=== PATIENT | female | born 1990 | race Caucasian/White ===

== ENCOUNTER 2019-06-22 18:06 | Emergency (ER) | payer OTHER ==
--- NOTE | 2019-06-22 18:36 | ER Document Report ---
ED Medical Screen (RME) - General Chief Complaint: Arrhythmia Stated Complaint: ABDOMINAL PAIN Time Seen by Provider: 06/22/19 18:29 Mode of Arrival: Ambulatory Information source: Patient Notes: 29-year-old female presented to ED for complaint of irregular heartbeat severe right-sided pelvic cramping and she is 7 weeks . She has had a confirmation UA. She is 2 para 1. Last menstrual period was May 02. She is very short of breath. She states the pain is so bad it woke her up from her sleep on her right pelvic area. She is a negative blood type. He has had a irregular heartbeat her whole life but it is much worse for the last couple days. She states the cramping is been bad for about 2 weeks. I have greeted and performed a rapid initial assessment of this patient. A comprehensive ED assessment and evaluation of the patient, analysis of test results and completion of medical decision making process will be conducted by an additional ED providers. Physical Exam - Vital signs Vitals: Temp Pulse Resp BP Pulse Ox 98.4 F 99 16 137/84 H 100 06/22/19 18:11 06/22/19 18:11 06/22/19 18:11 06/22/19 18:11 06/22/19 18:11 Course - Vital Signs Vital signs: Temp Pulse Resp BP Pulse Ox 98.4 F 99 16 137/84 H 100 06/22/19 18:11 06/22/19 18:11 06/22/19 18:11 06/22/19 18:11 06/22/19 18:11
--- NOTE | 2019-06-22 19:01 | RADIOLOGY REPORT (SQ) ---
EXAM DESCRIPTION: CHEST 2 VIEWS COMPLETED DATE/TIME: 06/22/2019 6:49 pm REASON FOR STUDY: heart arrythmia COMPARISON: None. EXAM PARAMETERS: NUMBER OF VIEWS: two views TECHNIQUE: Digital Frontal and Lateral radiographic views of the chest acquired. RADIATION DOSE: NA LIMITATIONS: none FINDINGS: LUNGS AND PLEURA: No opacities, masses or pneumothorax. No pleural effusion. MEDIASTINUM AND HILAR STRUCTURES: No masses or contour abnormalities. HEART AND VASCULAR STRUCTURES: Heart normal size. No evidence for failure. BONES: No acute findings. HARDWARE: None in the chest. OTHER: No other significant finding. IMPRESSION: NO ACUTE RADIOGRAPHIC FINDING IN THE CHEST. TECHNICAL DOCUMENTATION: JOB ID: [id number]- All Rights Reserved Reading location - IP/workstation name: [email or web address]
[2019-06-22 19:10] LABS: ABSOLUTE BASOPHILS # (AUTO) 0.1 10^3/uL (0.0-0.2); ABSOLUTE EOSINOPHILS # (AUTO) 0.1 10^3/uL (0.0-0.6); ABSOLUTE MONOCYTES (AUTO) 0.7 10^3/uL (0.1-1.4); BASOPHILS % (AUTO) 0.6 % (0-2); EOSINOPHILS % (AUTO) 1.4 % (0-6); HEMATOCRIT 35.8 % (36.0-47.0); HEMOGLOBIN 12.4 g/dL (12.0-15.5); MEAN CORPUSCULAR HEMOGLOBIN 31.5 pg (27.0-33.4); MEAN CORPUSCULAR HGB CONC 34.7 g/dL (32.0-36.0); MEAN CORPUSCULAR VOLUME 91 fl (80-97); MONOCYTES % (AUTO) 7.4 % (3-13); PLATELET COUNT 355 10^3/uL (150-450); RED BLOOD COUNT 3.94 10^6/uL (3.72-5.28); RED CELL DISTRIBUTION WIDTH 13.1 % (11.5-14.0); SEGMENTED NEUTROPHILS % (AUTO) 67.6 % (42-78); TOTAL CELLS COUNTED % (AUTO) 100 %; WHITE BLOOD COUNT 8.8 10^3/uL (4.0-10.5)
[2019-06-22 19:14] LABS: AMORPHOUS SEDIMENT,URINE TRACE /HPF; APPEARANCE,URINE SLIGHTLY-CLOUDY; BILIRUBIN,URINE NEGATIVE (NEGATIVE); COLOR,URINE YELLOW; GLUCOSE, URINE NEGATIVE (NEGATIVE); KETONES,URINE NEGATIVE (NEGATIVE); PROTEIN,URINE NEGATIVE (NEGATIVE); UROBILINOGEN,URINE NEGATIVE mg/dL (<2.0)
--- NOTE | 2019-06-22 19:14 | ER Document Report ---
ED Dizziness/Weakness - General Chief Complaint: Irregular Pulse Stated Complaint: ABDOMINAL PAIN Time Seen by Provider: 06/22/19 18:29 Mode of Arrival: Ambulatory Information source: Patient, Relative - , Friend Notes: Ms. Cabrera is a 29 yo f w/ PMH of chronic irregular heartbeat presenting to the ED for palpitations. Patient states that she has had ongoing irregular heartbeat for the past 2 to 3 weeks but within the past few days it caused some fatigue and shortness of breath. She denies any chest pain. She states that she is a . Her previous was otherwise healthy. She denies any vaginal discharge, vaginal bleeding or dysuria. No increased urinary frequency. She does endorse abdominal cramping. No cough, fever or chills, or vomiting or diarrhea however she does have dry heaving. Patient states that she does not drink much water throughout the day. Patient states that she tried to make an appointment with an OB but has not been able to go in and see them because her insurance change. No falls or trauma. TRAVEL OUTSIDE OF THE [place] IN LAST 30 DAYS: No - Related Data Allergies/Adverse Reactions: Penicillins Allergy (Verified 06/22/19 18:39) Sulfa (Sulfonamide Antibiotics) Allergy (Verified 06/22/19 18:39) Home Medications: [facility] Past Medical History - General Information source: Patient - Social History Smoking Status: Former Smoker Chew tobacco use (# tins/day): No Frequency of alcohol use: None Drug Abuse: None Family History: Reviewed & Not Pertinent Patient has suicidal ideation: No Patient has homicidal ideation: No Review of Systems - Review of Systems Constitutional: See HPI EENT: No symptoms reported Cardiovascular: See HPI, Palpitations Respiratory: No symptoms reported Gastrointestinal: No symptoms reported Genitourinary: No symptoms reported Female Genitourinary: No symptoms reported. denies: Vaginal discharge, Vaginal bleeding Musculoskeletal: No symptoms reported Skin: No symptoms reported Hematologic/Lymphatic: No symptoms reported Neurological/Psychological: No symptoms reported Physical Exam - Vital signs Vitals: Temp Pulse Resp BP Pulse Ox 98.4 F 99 16 137/84 H 100 06/22/19 18:11 06/22/19 18:11 06/22/19 18:11 06/22/19 18:11 06/22/19 18:11 Interpretation: Normal - General General appearance: Appears well, Alert - HEENT Head: Normocephalic, Atraumatic Eyes: Normal Pupils: PERRL - Respiratory Respiratory status: No respiratory distress Chest status: Nontender Breath sounds: Normal Chest palpation: Normal - Cardiovascular Rhythm: Regular Heart sounds: Normal auscultation Murmur: No - Abdominal Inspection: Normal Distension: No distension Bowel sounds: Normal Tenderness: Nontender Organomegaly: No organomegaly Notes: Unable to palpate gravid abdomen. - Back Back: Normal, Nontender - Extremities General upper extremity: Normal inspection, Nontender, Normal color, Normal ROM, Normal temperature General lower extremity: Normal inspection, Nontender, Normal color, Normal ROM, Normal temperature, Normal weight bearing. No: Peewee's sign - Neurological Neuro grossly intact: Yes Cognition: Normal Orientation: AAOx4 [place] Coma Scale Eye Opening: Spontaneous Rocio Coma Scale Verbal: Oriented [place] Coma Scale Motor: Obeys Commands [place] Coma Scale Total: 15 Speech: Normal Motor strength normal: LUE, RUE, LLE, RLE Sensory: Normal - Psychological Associated symptoms: Normal affect, Normal mood - Skin Skin Temperature: Warm Skin Moisture: Dry Skin Color: Normal Course - Re-evaluation Re-evalutation: She is generally well-appearing nontoxic. Initial vitals within normal limits. Differential diagnosis includes first trimester , ectopic , dehydration, UTI EKG nonischemic and is without tachycardia. 06/22/19 19:13 Attempted to go evaluate patient however she had already been taken from her room to ultrasound. Vitals from triage are stable. Mid-level provider in triage was concerned about a possible ectopic as the patient had a positive and reported feeling palpitations but no confirmed IUP. Will allow patient to undergo ultrasound prior to evaluation. Labs otherwise unremarkable. 06/22/19 21:00 Ultrasound does show a live intrauterine . Ultrasound shows approximately 7 weeks 3 days gestation with a small subchorionic hemorrhage. I discussed this at length with the patient. Instructed to drink more fluid and stay well-hydrated. Instructed to also follow-up with [facility]. Patient was prescribed Diclegis first trimester nausea. Patient given return precautions. - Vital Signs Vital signs: Temp Pulse Resp BP Pulse Ox 98.6 F 92 20 120/86 H 99 06/22/19 22:35 06/22/19 22:35 06/22/19 22:35 06/22/19 22:35 06/22/19 22:35 - Laboratory Result Diagrams: 06/22/19 18:00 06/22/19 18:00 Laboratory results interpreted by me: 06/22/19 06/22/19 18:00 18:00 Hct 35.8 L Creatinine 0.50 L Alkaline Phosphatase 32 L Beta HCG, Quant 185388.00 H Discharge - Discharge Clinical Impression: Intrauterine , Subchorionic hematoma in first trimester Condition: Good Disposition: HOME, SELF-CARE Instructions: ([facility]) Additional Instructions: It is important to you try to establish care with a [facility] as soon as possible. Your ultrasound shows a small subchorionic hemorrhage. Make sure you drink plenty of water and stay well-hydrated. Continue taking vitamins. Make sure that you start taking stool softeners. Prescriptions: Doxylamine Succinate/Vit B6 [Radha Luong 10-10 mg Tablet] 1 each PO QHS #30 tablet.
[2019-06-22 19:36] LABS: ALBUMIN 4.6 g/dL (3.5-5.0); ALKALINE PHOSPHATASE 32 U/L (38-126); ANION GAP 11 (5-19); ASPARTATE AMINO TRANSFERASE 20 U/L (14-36); BILIRUBIN,TOTAL 0.2 mg/dL (0.2-1.3); BLOOD UREA NITROGEN 8 mg/dL (7-20); CALCIUM 9.6 mg/dL (8.4-10.2); CARBON DIOXIDE 26 mmol/L (22-30); CHLORIDE 100 mmol/L (98-107); GLUCOSE 87 mg/dL (75-110); POTASSIUM 3.6 mmol/L (3.6-5.0); TOTAL PROTEIN 7.5 g/dL (6.3-8.2)
--- NOTE | 2019-06-22 20:39 | RADIOLOGY REPORT (SQ) ---
EXAM DESCRIPTION: US TRANSVAGINAL COMPLETED DATE/TME: 06/22/2019 18:34 CLINICAL HISTORY: 29 years, Female, 7 weeks severe right pelvic pain COMPARISON: None. TECHNIQUE: LIMITATIONS: None. FINDINGS: There is a live 7 week 3 day IUP, based on a crown-rump length of 1.2 cm. Embryonic cardiac activity was measured at 147 bpm. There is a possible 16 x 6 mm subchorionic hemorrhage, at the inferior aspect of the gestational sac. There is a 3 cm left ovarian corpus luteum cyst. No follow-up imaging is recommended. No free fluid. The right ovary is unremarkable. IMPRESSION: Live IUP with a possible small subchorionic hemorrhage. copyright 2010 [employer]- All Rights Reserved
[2019-06-22 22:36] VITALS: BP 120/86
--- NOTE | 2019-06-23 09:34 | EKG REPORT ---
SEVERITY:- NORMAL ECG - SINUS RHYTHM : Confirmed by: Valerio Doherty 23-Jun-2019 09:34:12
== END 2019-06-22 22:36 | disposition home or self-care (01) ==
LOC: EDSEX → ER 18:06
DX: O20.8 Other hemorrhage in early pregnancy (principal); O26.891 Other specified pregnancy related conditions, first trimester; R00.2 Palpitations; R06.02 Shortness of breath; R11.0 Nausea; R10.9 Unspecified abdominal pain; O26.811 Pregnancy related exhaustion and fatigue, first trimester; Z3A.00 Weeks of gestation of pregnancy not specified; Z87.891 Personal history of nicotine dependence; Z88.0 Allergy status to penicillin; Z88.2 Allergy status to sulfonamides
CPT/HCPCS: 36415; 71046; 76817; 80053; 81001; 83690; 83735; 84484; 84702; 85025; 86900; 86901; 93005; 93010; 93976; 99285

== ENCOUNTER 2019-07-07 11:26 | Emergency (ER) | payer OTHER ==
[2019-07-07] MEDS ORDERED: DIPHENHYDRAMINE HCL 25 MG CAPSULE PO ONE (11:37)
[2019-07-07] MEDS ORDERED: METOCLOPRAMIDE HCL 10 MG TABLET PO ONE (11:37)
--- NOTE | 2019-07-07 11:40 | ER Document Report ---
ED Medical Screen (RME) - General Chief Complaint: Headache Stated Complaint: HEADACHE Time Seen by Provider: 07/07/19 11:34 Mode of Arrival: Ambulatory Information source: Patient Notes: This 29-year-old female with history of migraines and 9 1/2-week G2, P1 presents emergency department with complaints of migraine. Reports she is actually had a migraine for the past 3 days but this morning it was severe. Refills nausea no vomiting. Reports she is to take several different medications for migraines but since she is she cannot take them. She took Benadryl yesterday did not help she took Tylenol this morning no relief of symptoms. I have greeted and performed a rapid initial assessment of this patient. A comprehensive ED assessment and evaluation of the patient, analysis of test results and completion of the medical decision making process will be conducted by additional ED providers. Dictation of this chart was performed using voice recognition software; therefore, there may be some unintended grammatical errors. TRAVEL OUTSIDE OF THE [place] IN LAST 30 DAYS: No - Related Data Allergies/Adverse Reactions: Penicillins Allergy (Verified 07/07/19 11:35) Sulfa (Sulfonamide Antibiotics) Allergy (Verified 07/07/19 11:35) Physical Exam - Vital signs Vitals: Temp Pulse Resp BP Pulse Ox 98.1 F 107 H 18 117/64 100 07/07/19 11:31 07/07/19 11:31 07/07/19 11:31 07/07/19 11:31 07/07/19 11:31 Course - Vital Signs Vital signs: Temp Pulse Resp BP Pulse Ox 98.1 F 107 H 18 117/64 100 07/07/19 11:31 07/07/19 11:31 07/07/19 11:31 07/07/19 11:31 07/07/19 11:31
[2019-07-07] MEDS ORDERED: NORMAL SALINE 1000 ML 1,000 ML IV ONE (12:25)
[2019-07-07] MEDS ORDERED: DEXAMETHASONE SOD PHOS INJ 10 MG/1 ML VIAL IV ONE (12:32)
[2019-07-07] MEDS ORDERED: BUTALB/ACETAMINOPHEN/CAFFEINE 1 TAB EACH PO ONE (12:32)
[2019-07-07] MEDS ORDERED: DIPHENHYDRAMINE HCL 50 MG/ML VIAL IV ONE (12:32)
--- NOTE | 2019-07-07 12:42 | ER Document Report ---
ED Headache - General Chief Complaint: Headache Stated Complaint: HEADACHE Time Seen by Provider: 07/07/19 11:34 Primary Care Provider: JUSTA WHITMORE MD [Primary Care Provider] - Follow up as needed Mode of Arrival: Ambulatory Notes: Patient presents complaining of headache for the past 3 days that started gradually. Patient reports nausea no vomiting. Patient denies any fever or he ad injury. Patient is currently 9 and half weeks G2, P1. Patient states Tylenol did not help with her pain symptoms at home. TRAVEL OUTSIDE OF THE [place] IN LAST 30 DAYS: No - HPI Patient complains to provider of: Headache Patient reports: Occasional migraines Onset: Other - 3 days Onset was: Gradual Timing: Still present Pain Level: 5 Context: denies: Head injury Associated symptoms: Nausea/vomiting, Photophobia. denies: Dizzy, Fever, Speech problems, Stiff neck, Tingling/numb sensation Exacerbated by: Light, Noise, Movement Similar symptoms previously: Yes Recently seen / treated by doctor: No - Related Data Allergies/Adverse Reactions: Penicillins Allergy (Verified 07/07/19 11:35) Sulfa (Sulfonamide Antibiotics) Allergy (Verified 07/07/19 11:35) Past Medical History - General Information source: Patient - Social History Smoking Status: Never Smoker Chew tobacco use (# tins/day): No Frequency of alcohol use: None Drug Abuse: None Lives with: Family Family History: Reviewed & Not Pertinent Patient has suicidal ideation: No Patient has homicidal ideation: No - Past Medical History Cardiac Medical History: Reports: Other - Mitral valve prolapse Neurological Medical History: Reports: Hx Migraine Surgical Hx: Negative Review of Systems - Review of Systems Constitutional: No symptoms reported. denies: Fever, Recent illness EENT: No symptoms reported Cardiovascular: No symptoms reported. denies: Chest pain Respiratory: No symptoms reported. denies: Cough, Short of breath Gastrointestinal: Nausea. denies: Abdominal pain, Vomiting Genitourinary: No symptoms reported Female Genitourinary: . denies: Vaginal discharge, Vaginal bleeding Musculoskeletal: No symptoms reported. denies: Back pain, Neck pain Skin: No symptoms reported. denies: Rash Hematologic/Lymphatic: No symptoms reported Neurological/Psychological: Headaches Physical Exam - Vital signs Vitals: Temp Pulse Resp BP Pulse Ox 98.1 F 107 H 18 117/64 100 07/07/19 11:31 07/07/19 11:31 07/07/19 11:31 07/07/19 11:31 07/07/19 11:31 - General General appearance: Appears well, Alert In distress: None - HEENT Head: Normocephalic, Atraumatic Eyes: Normal Conjunctiva: Normal Extraocular movements intact: Yes Eyelashes: Normal Pupils: PERRL Nasal: Normal Mouth/Lips: Normal Mucous membranes: Normal Pharynx: Normal Neck: Normal, Supple. No: Brudzinski, Lymphadenopathy, Meningismus - Respiratory Respiratory status: No respiratory distress Chest status: Nontender Breath sounds: Normal. No: Rales, Rhonchi, Stridor, Wheezing Chest palpation: Normal - Cardiovascular Rhythm: Tachycardia Heart sounds: S1 appreciated, S2 appreciated Murmur: No - Abdominal Inspection: Normal Distension: No distension Bowel sounds: Normal Tenderness: Nontender Organomegaly: No organomegaly - Back Back: Normal, Nontender. No: CVA tenderness - Extremities General upper extremity: Normal inspection, Normal strength General lower extremity: Normal inspection, Normal strength - Neurological Neuro grossly intact: Yes Cognition: Normal Orientation: AAOx4 Rocio Coma Scale Eye Opening: Spontaneous Rocio Coma Scale Verbal: Oriented Rocio Coma Scale Motor: Obeys Commands Rocio Coma Scale Total: 15 - Psychological Associated symptoms: Normal affect, Normal mood - Skin Skin Temperature: Warm Skin Moisture: Dry Skin Color: Normal Course - Re-evaluation Re-evalutation: 07/07/19 13:33 Patient reports headache pain is currently resolved at this time. Patient reports feeling much better and nausea is improved as well. The patient presents with headache without signs of PHOTOGRAPHY MANAGER bleed, stroke, infection, or other serious etiology. The patient is neurologically intact. Given the extremely low risk of these diagnoses further testing and evaluation for these possibilities does not appear to be indicated at this time. The patient has been instructed to return if the symptoms worsen or change in any way. - Vital Signs Vital signs: Temp Pulse Resp BP Pulse Ox 98.0 F 80 18 118/70 100 07/07/19 13:40 07/07/19 13:40 07/07/19 13:40 07/07/19 13:40 07/07/19 13:40 Discharge - Discharge Clinical Impression: Headache Qualifiers: Headache type: unspecified Headache chronicity pattern: unspecified pattern Intractability: not intractable Qualified Code(s): R51 - Headache Condition: Stable Disposition: HOME, SELF-CARE Instructions: Antinausea Medication ([facility]), Use of Diphenhydramine, Headache ([facility]), Intravenous (IV) Fluids ([facility]) Additional Instructions: Return immediately for any new or worsening symptoms Followup with your primary care provider, call tomorrow to make a followup appointment Prescriptions: Promethazine HCl [Phenergan 25 mg Tablet] 25 mg PO Q6H PRN #12 tablet PRN Reason: Referrals: JUSTA WHITMORE MD [Primary Care Provider] - Follow up as needed
[2019-07-07 13:41] VITALS: BP 118/70
== END 2019-07-07 13:45 | disposition home or self-care (01) ==
LOC: ER 11:26
DX: O26.891 Other specified pregnancy related conditions, first trimester (principal); R51 Headache; R11.0 Nausea; H53.149 Visual discomfort, unspecified; R00.0 Tachycardia, unspecified; Z3A.09 9 weeks gestation of pregnancy; Z88.0 Allergy status to penicillin; Z88.2 Allergy status to sulfonamides
CPT/HCPCS: J3490; J1200; J7030; J1100; 96361; 96374; 96375; 99283

== ENCOUNTER 2020-02-16 23:04 | Emergency (ER) | payer OTHER ==
[2020-02-16] MEDS ORDERED: DOXYCYCLINE HYCLATE 100 MG TABLET PO ONE (23:49)
--- NOTE | 2020-02-16 23:52 | ER Document Report ---
HPI - HPI Time Seen by Provider: 02/16/20 23:48 Notes: Otherwise healthy 29 year old female presenting to the ED with complaints of a cat bite to her hand and forearm. Herminia states that her cat was caught in the window blinds and while trying to help the cat , the cat got scared and bit her and her . Cats immunizations are UTD. Patients immunizations are UTD. Past Medical History - General Information source: Patient - Social History Smoking Status: Never Smoker Frequency of alcohol use: None Family History: Reviewed & Not Pertinent Neurological Medical History: Reports: Hx Migraine Surgical Hx: Negative Vertical Provider Document - CONSTITUTIONAL Notes: PHYSICAL EXAMINATION: GENERAL: Well-appearing, well-nourished and in no acute distress. HEAD: Atraumatic, normocephalic. EYES: Pupils equal round extraocular movements intact, conjunctiva are normal. ENT: Nares patent NECK: Normal range of motion LUNGS: No respiratory distress Musculoskeletal: Normal range of motion NEUROLOGICAL: Normal speech, normal gait. PSYCH: Normal mood, normal affect. SKIN: Multiple puncture wounds and abrasions noted to left hand and wrist. No active bleeding. - INFECTION CONTROL TRAVEL OUTSIDE OF THE [place] IN LAST 30 DAYS: No Course - Re-evaluation Re-evalutation: Patient appears well, nontoxic, vital signs reviewed. Patient does have puncture wounds and abrasions to her left wrist and forearm consistent with patient's report of being bitten by her cat. Her immunizations are up-to-date. She does have multiple antibiotic allergies so she will be started on doxycycline. Patient encouraged very strict ED return precautions and we discussed signs and symptoms of infection of the bites. - Vital Signs Vital signs: Temp Pulse Resp BP Pulse Ox 97.5 F 68 16 115/73 99 02/16/20 23:25 02/16/20 23:25 02/16/20 23:25 02/16/20 23:25 02/16/20 23:25 Discharge - Discharge Clinical Impression: Cat bite Condition: Stable Disposition: HOME, SELF-CARE Additional Instructions: Animal Bites Animal bites are often heavily contaminated with bacteria. In spite of thorough cleansing and proper treatment, these wounds frequently become infected. Bite wounds of the hands are especially prone to complications. Bites are dressed, if possible. Large wounds may require suturing after internal cleansing. Because of infection risk, some large wounds must remain unstitched. Your doctor is trained to advise you on the best treatment for your bite. Call the doctor at once if the wound becomes red, swollen, warm, increasingly painful, or if it begins to drain. Danger signs also include red streaks up the involved extremity, swollen glands in the groin or under the arm, or fever and chills. The risk of rabies from domestic animals is very low. Bats, sick animals, and wild animals may expose you to rabies. The physician, or the health department, will inform you if you will need to receive the rabies vaccine. Please take antibiotics as prescribed. Watch very closely for signs of infection to include increasing swelling, pain, redness, red streaking from the area, development of fever or any other worsening symptoms. Prescriptions: Doxycycline Hyclate [Vibramycin 100 mg Tablet] 100 mg PO BID 10 Days #20 tablet Referrals: JUSTA WHITMORE MD [NO LOCAL MD] - Follow up as needed
[2020-02-17 00:12] VITALS: BP 117/82
== END 2020-02-17 00:08 | disposition home or self-care (01) ==
LOC: ER 23:04
DX: T14.8XXA Other injury of unspecified body region, initial encounter (principal); W55.01XA Bitten by cat, initial encounter
CPT/HCPCS: 99283

== ENCOUNTER 2020-07-06 13:35 | Emergency (ER) | payer OTHER ==
[2020-07-06 13:42] VITALS: BP 127/82
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
[2020-07-06] MEDS ORDERED: KETOROLAC TROMETHAMINE INJ/PF 30 MG/1 ML SDV IM ONE (14:28)
== END 2020-07-06 14:40 | disposition home or self-care (01) ==
LOC: ER 13:35
DX: S09.90XA Unspecified injury of head, initial encounter (principal); S40.012A Contusion of left shoulder, initial encounter; V89.2XXA Person injured in unspecified motor-vehicle accident, traffic, initial encounter; Q79.60 Ehlers-Danlos syndrome, unspecified
CPT/HCPCS: 99284; 96372; J1885